=== PATIENT | female | born 2000 | race Caucasian/White ===

== ENCOUNTER 2022-06-25 12:26 | Outpatient (CLI) | payer OTHER, SELFPAY | END 2022-06-25 12:27 | disposition home or self-care (01) | LOC: NFLDREF 12:27 | PROVIDERS: Visit Provider Registered Nurse | DX: Z01.419 Encounter for gynecological examination (general) (routine) without abnormal findings (principal); Z13.6 Encounter for screening for cardiovascular disorders; Z13.1 Encounter for screening for diabetes mellitus | CPT/HCPCS: 80061 ==